=== PATIENT | female | born 1950 | race African-American/Black ===

== ENCOUNTER 2019-07-17 10:41 | Emergency (ER) | payer MEDICARE, MEDICAID ==
[~2019-07-17] VITALS: Ht 167.6 cm; Wt 86.0 kg
[2019-07-17] MEDS ORDERED: KETOROLAC 60MG/2ML VIAL IM ONE (11:45)
[2019-07-17] MEDS ORDERED: METHOCARBAMOL 500MG TABLET PO ONE (11:45)
[2019-07-17 13:41] VITALS: BP 129/122
== END 2019-07-17 13:58 | disposition home or self-care (01) ==
LOC: ER 10:41
DX: S13.9XXA Sprain of joints and ligaments of unspecified parts of neck, initial encounter (principal); M43.6 Torticollis; E11.9 Type 2 diabetes mellitus without complications; I10 Essential (primary) hypertension; M19.90 Unspecified osteoarthritis, unspecified site; Z88.0 Allergy status to penicillin; X58.XXXA Exposure to other specified factors, initial encounter; Y93.89 Activity, other specified; Y92.018 Other place in single-family (private) house as the place of occurrence of the external cause
CPT/HCPCS: 72125; 96372; 99285; J1885

== ENCOUNTER 2019-09-16 10:55 | Emergency (ER) | payer MEDICARE, MEDICAID ==
[~2019-09-16] VITALS: Ht 167.6 cm; Wt 87.0 kg
[2019-09-16] MEDS ORDERED: KETOROLAC 60MG/2ML VIAL IM NR (12:00)
[2019-09-16 12:43] VITALS: BP 117/59
== END 2019-09-16 13:00 | disposition home or self-care (01) ==
LOC: ER 10:55
DX: M54.12 Radiculopathy, cervical region (principal); I10 Essential (primary) hypertension; E11.9 Type 2 diabetes mellitus without complications; G89.29 Other chronic pain; Z87.39 Personal history of other diseases of the musculoskeletal system and connective tissue; Z88.0 Allergy status to penicillin
CPT/HCPCS: 99283; J1885